=== PATIENT | female | born 1980 | race Two or more races ===

== ENCOUNTER 2017-10-05 15:45 | Emergency (ER) | payer OTHER ==
[~2017-10-05] VITALS: Ht 152.4 cm; Wt 81.2 kg
[2017-10-05 15:51] VITALS: BP 165/102
== END 2017-10-05 16:28 ==
LOC: ER 15:50
DX: Z02.89 Encounter for other administrative examinations (principal); I10 Essential (primary) hypertension; Z60.2 Problems related to living alone
CPT/HCPCS: 99283; A4606; Z7610